=== PATIENT | male | born 1965 | race Caucasian/White ===

== ENCOUNTER → 2020-11-19 | Outpatient (CLI) | payer BC ==
[2020-11-19 15:19] LABS: Basophils # (A) 0.1 k/uL (0-0.2); Basophils % (A) 1 %; Eosinophils # (A) 0.1 k/uL (0-0.7); Eosinophils % (A) 1 %; HGB 14.2 gm/dL (13.0-17.5); Lymphocytes # (A) 1.1 k/uL (1.0-4.8); Lymphocytes % (A) 11 %; MCH 30.6 pg (25.0-35.0); MCHC 32.2 g/dL (31.0-37.0); MCV 94.7 fL (80.0-100.0); Mean Platelet Volume 6.3; Monocytes # (A) 0.4 k/uL (0-1.0); Monocytes % (A) 4 %; Neutrophils # (A) 8.1 k/uL (1.3-7.7); Neutrophils % (A) 82 %; Platelet Count 551 k/uL (150-450); RBC 4.64 m/uL (4.30-5.90); RDW 13.6 % (11.5-15.5); WBC 9.8 k/uL (3.8-10.6)
[2020-11-19 15:20] LABS: Potassium 5.3 mmol/L (3.5-5.1)
[2020-11-19 15:21] LABS: ALT 58 U/L (4-49); AST 31 U/L (17-59); African American GFR (CKD) >90 (>60 ml/min/1.73 sqM); Albumin 3.7 g/dL (3.5-5.0); Albumin/Globulin Ratio 1.3; Alkaline Phosphatase 75 U/L (38-126); Anion Gap 9 mmol/L; Blood Urea Nitrogen 22 mg/dL (9-20); Calcium 9.4 mg/dL (8.4-10.2); Carbon Dioxide 24 mmol/L (22-30); Chloride 107 mmol/L (98-107); Globulin 2.9 g/dL; Glucose 90 mg/dL (74-99); Non-African American GFR(CKD) 81 (>60 ml/min/1.73 sqM); Sodium 140 mmol/L (137-145); Total Bilirubin 0.3 mg/dL (0.2-1.3); Total Protein 6.6 g/dL (6.3-8.2)
[2020-11-19 15:38] LABS: T4, Free (Free Thyroxine) 1.24 ng/dL (0.78-2.19)
== END | disposition home or self-care (01) ==
LOC: LABWHC1 14:11
PROVIDERS: ATTEND Physician Assistant
DX: U07.1 COVID-19 (principal)
CPT/HCPCS: 80053; 83880; 84439; 84443; 85025; 85379

== ENCOUNTER 2020-11-22 10:41 | Inpatient (IN) | payer BC ==
[2020-11-22] MEDS ORDERED: HEPARIN SODIUM 1,000 UN/ML (10ML VL) IV PRN (11:15)
[2020-11-22] MEDS ORDERED: HEPARIN SODIUM 1,000 UN/ML (10ML VL) IV ONE (11:15)
--- NOTE | 2020-11-22 11:41 | ED ---
SOB HPI - General Chief Complaint: Shortness of Breath Stated Complaint: rt lower lobe PE Time Seen by Provider: 11/22/20 10:57 Source: patient, RN notes reviewed Mode of arrival: ambulatory Limitations: no limitations - History of Present Illness Initial Comments: 55-year-old male presents emergency Department from outpatient CT with chief complaint of and wasn't. Patient states she was diagnosed with cold visit on November 05. Patient states that he wasn't doing well he was seen placed on hydroxychloroquine, antibiotics inhaler. Patient states that he was doing that not getting any better did follow-up had an x-ray and blood work. Patient had a n elevated d-dimer which he had a CAT scan today showing right-sided pulmonary embolus. Patient denies any significant calf pain, pleuritic chest pain, abdominal pain. No history of DVT or PE. - Related Data Home Medications Medication Instructions Recorded Confirmed Albuterol Inhaler [Ventolin Hfa 2 puff INHALATION RT-Q4H PRN 11/22/20 11/22/20 Inhaler] Doxycycline Hyclate [Vibramycin] 100 mg PO BID 11/22/20 11/22/20 Allergies Allergy/AdvReac Type Severity Reaction Status Date / Time No Known Allergies Allergy Verified 11/22/20 12:14 Review of Systems ROS Statement: Those systems with pertinent positive or pertinent negative responses have been documented in the HPI. ROS Other: All systems not noted in ROS Statement are negative. Past Medical History Past Medical History: No Reported History History of Any Multi-Drug Resistant Organisms: None Reported Past Surgical History: No Surgical Hx Reported Additional Past Surgical History / Comment(s): bicep tendon repair L arm Past Psychological History: No Psychological Hx Reported Smoking Status: Former smoker Past Alcohol Use History: Daily Past Drug Use History: None Reported General Exam Limitations: no limitations General appearance: alert, in no apparent distress Head exam: Present: atraumatic, normocephalic, normal inspection ENT exam: Present: normal exam, normal oropharynx, mucous membranes moist Neck exam: Present: normal inspection, full ROM. Absent: tenderness, lymphadenopathy Respiratory exam: Present: normal lung sounds bilaterally. Absent: respiratory distress, wheezes, rales, rhonchi, stridor, chest wall tenderness Cardiovascular Exam: Present: regular rate, normal rhythm, normal heart sounds. Absent: systolic murmur, diastolic murmur, rubs, gallop, clicks GI/Abdominal exam: Present: soft, normal bowel sounds. Absent: distended, tenderness, guarding, rebound, rigid Extremities exam: Absent: calf tenderness Neurological exam: Present: alert, oriented X3 Skin exam: Present: warm, dry, intact, normal color. Absent: rash Course Vital Signs 11/22/20 11/22/20 11/22/20 10:43 11:16 12:25 Temperature 98.2 F Pulse Rate 77 73 66 Respiratory 18 20 18 Rate Blood Pressure 105/73 120/76 O2 Sat by Pulse 96 95 95 Oximetry Medical Decision Making - Medical Decision Making Patient vital are stable. Case discussed with Dr. Rhoades Patient will be admitted to hospital on IV heparin. - Lab Data Result diagrams: 11/22/20 11:23 11/22/20 11:23 Lab Results 11/22/20 11/22/20 11/22/20 Range/Units 11:23 11:23 11:23 WBC 6.8 (3.8-10.6) k/uL RBC 4.67 (4.30-5.90) m/uL Hgb 14.1 (13.0-17.5) gm/dL Hct 43.3 (39.0-53.0) % MCV 92.8 (80.0-100.0) fL MCH 30.3 (25.0-35.0) pg MCHC 32.6 (31.0-37.0) g/dL RDW 13.3 (11.5-15.5) % Plt Count 449 (150-450) k/uL MPV 6.3 Neutrophils % 78 % Lymphocytes % 13 % Monocytes % 5 % Eosinophils % 1 % Basophils % 1 % Neutrophils # 5.3 (1.3-7.7) k/uL Lymphocytes # 0.9 L (1.0-4.8) k/uL Monocytes # 0.4 (0-1.0) k/uL Eosinophils # 0.1 (0-0.7) k/uL Basophils # 0.0 (0-0.2) k/uL PT 9.7 (9.0-12.0) sec INR 0.9 (<1.2) APTT 23.1 (22.0-30.0) sec Sodium 139 (137-145) mmol/L Potassium 5.4 H (3.5-5.1) mmol/L Chloride 106 (98-107) mmol/L Carbon Dioxide 27 (22-30) mmol/L Anion Gap 6 mmol/L BUN 19 (9-20) mg/dL Creatinine 0.99 (0.66-1.25) mg/dL Est GFR (CKD-EPI)AfAm >90 (>60 ml/min/1.73 sqM) Est GFR (CKD-EPI)NonAf 86 (>60 ml/min/1.73 sqM) Glucose 96 (74-99) mg/dL Calcium 9.4 (8.4-10.2) mg/dL Total Bilirubin 0.6 (0.2-1.3) mg/dL AST 31 (17-59) U/L ALT 48 (4-49) U/L Alkaline Phosphatase 53 (38-126) U/L Troponin I (0.000-0.034) ng/mL NT-Pro-B Natriuret Pep pg/mL Total Protein 6.6 (6.3-8.2) g/dL Albumin 3.6 (3.5-5.0) g/dL 11/22/20 11/22/20 Range/Units 11:23 11:23 WBC (3.8-10.6) k/uL RBC (4.30-5.90) m/uL Hgb (13.0-17.5) gm/dL Hct (39.0-53.0) % MCV (80.0-100.0) fL MCH (25.0-35.0) pg MCHC (31.0-37.0) g/dL RDW (11.5-15.5) % Plt Count (150-450) k/uL MPV Neutrophils % % Lymphocytes % % Monocytes % % Eosinophils % % Basophils % % Neutrophils # (1.3-7.7) k/uL Lymphocytes # (1.0-4.8) k/uL Monocytes # (0-1.0) k/uL Eosinophils # (0-0.7) k/uL Basophils # (0-0.2) k/uL PT (9.0-12.0) sec INR (<1.2) APTT (22.0-30.0) sec Sodium (137-145) mmol/L Potassium (3.5-5.1) mmol/L Chloride (98-107) mmol/L Carbon Dioxide (22-30) mmol/L Anion Gap mmol/L BUN (9-20) mg/dL Creatinine (0.66-1.25) mg/dL Est GFR (CKD-EPI)AfAm (>60 ml/min/1.73 sqM) Est GFR (CKD-EPI)NonAf (>60 ml/min/1.73 sqM) Glucose (74-99) mg/dL Calcium (8.4-10.2) mg/dL Total Bilirubin (0.2-1.3) mg/dL AST (17-59) U/L ALT (4-49) U/L Alkaline Phosphatase (38-126) U/L Troponin I <0.012 (0.000-0.034) ng/mL NT-Pro-B Natriuret Pep 22 pg/mL Total Protein (6.3-8.2) g/dL Albumin (3.5-5.0) g/dL Critical Care Time Critical Care Time: Yes Total Critical Care Time: 35 Critical Care Time: 35 minutes of critical care time were used initially about the patient and review past medical history prior labs and CT labs were ordered started on IV heparin patient's case discussed with admitting physician. Disposition Clinical Impression: Pulmonary embolism, COVID-19 Disposition: ADMITTED IP TO THIS HOSP Condition: Fair Referrals: Nilesh Britt MD [Primary Care Provider] - 1-2 days
[2020-11-22 11:49] LABS: Basophils % (A) 1 %; Eosinophils # (A) 0.1 k/uL (0-0.7); Eosinophils % (A) 1 %; HCT 43.3 % (39.0-53.0); HGB 14.1 gm/dL (13.0-17.5); Lymphocytes # (A) 0.9 k/uL (1.0-4.8); Lymphocytes % (A) 13 %; MCH 30.3 pg (25.0-35.0); MCHC 32.6 g/dL (31.0-37.0); MCV 92.8 fL (80.0-100.0); Mean Platelet Volume 6.3; Monocytes # (A) 0.4 k/uL (0-1.0); Monocytes % (A) 5 %; Neutrophils # (A) 5.3 k/uL (1.3-7.7); Neutrophils % (A) 78 %; Platelet Count 449 k/uL (150-450); RBC 4.67 m/uL (4.30-5.90); RDW 13.3 % (11.5-15.5); WBC 6.8 k/uL (3.8-10.6)
[2020-11-22] MEDS: HEPARIN SOD,PORK IN 0.45% NACL 25,000 UNIT in 0.45% NACL 1 250ML.BAG IV SCH (11:50)
[2020-11-22 12:01] LABS: ALT 48 U/L (4-49); AST 31 U/L (17-59); African American GFR (CKD) >90 (>60 ml/min/1.73 sqM); Albumin 3.6 g/dL (3.5-5.0); Alkaline Phosphatase 53 U/L (38-126); Anion Gap 6 mmol/L; Blood Urea Nitrogen 19 mg/dL (9-20); Calcium 9.4 mg/dL (8.4-10.2); Carbon Dioxide 27 mmol/L (22-30); Chloride 106 mmol/L (98-107); Glucose 96 mg/dL (74-99); Non-African American GFR(CKD) 86 (>60 ml/min/1.73 sqM); Potassium 5.4 mmol/L (3.5-5.1); Sodium 139 mmol/L (137-145); Total Bilirubin 0.6 mg/dL (0.2-1.3); Total Protein 6.6 g/dL (6.3-8.2)
[2020-11-22 12:36] LABS: INR 0.9 (<1.2); Partial Thromboplastin Time 23.1 sec (22.0-30.0); Prothrombin Time 9.7 sec (9.0-12.0)
[2020-11-22] MEDS ORDERED: ACETAMINOPHEN TAB 325 MG TAB PO PRN (12:58)
[2020-11-22] MEDS ORDERED: ALBUTEROL HFA INHALER INHALATION PRN (12:58)
[2020-11-22] MEDS ORDERED: NALOXONE 0.4 MG/ML 1 ML VIAL IV PRN (13:31)
[2020-11-22] MEDS ORDERED: MELATONIN 3 MG TABLET PO PRN (13:37)
[2020-11-22] MEDS ORDERED: HYDROcodone/APAP 5-325MG 1 EACH TAB PO PRN (13:37)
[2020-11-22] MEDS ORDERED: ONDANSETRON 4 MG/2 ML VIAL IVP PRN (13:37)
--- NOTE | 2020-11-22 14:46 | P.HPIM ---
History of Present Illness H&P Date: 11/22/20 History of presenting illness: Patient is a 55-year-old male with recent history of Covid 19 virus infection diagnosed on 11/10/20 at [facility] in [place]. He reports his symptoms of fever, chills, cough, shortness of breath, and congestion began approximately 1 week prior on 11/03/20. He presented to the hospital today secondary to abnormal computed tomography scan revealing right-sided pulmonary emboli after having abnormal blood work at PCPs office which was significant for an elevated d-dimer. CTA completed this morning revealed right lower lobe pulmonary embolism within the second and third branches of right lower lobe along with scattered groundglass opacities correlating with Covid 19 pneumonia. Patient was given heparin bolus followed by infusion secondary to acute PEs and admitted under our services for continued medical management. EKG was completed showing normal sinus rhythm at 71 bpm with no noted T-wave or ST abnormalities showing no acute ischemia. CBC unremarkable, coags unremarkable. BMP revealed mild hyperkalemia with potassium of 5.4 otherwise normal findings. Troponin less than 0.012. Patient reports persistent low-grade fever 99-100F accompanied by Review of systems: Pertinent positives and negatives as discussed in HPI, a complete review of systems was performed and all other systems are negative. Physical exam: General: non toxic, no distress, appears at stated age Derm: warm, dry Head: atraumatic, normocephalic, symmetric Eyes: EOMI, no lid lag, anicteric sclera Mouth: no lip lesion, mucus membranes moist Cardiovascular: S1S2 reg, no murmur, positive posterior tibial pulse bilateral, Lungs: CTA bilateral, no rhonchi, no rales , no accessory muscle use Abdominal: soft, nontender to palpation, no guarding, no appreciable organomegaly Ext: no gross muscle atrophy, no edema, no contractures Neuro: CN II-XI grossly intact, no focal neuro deficits Psych: Alert, oriented, appropriate affect Plan of care: Acute PE within the second and third branches of right lower lobe -CTA revealed right lower lobe pulmonary embolism within the second and third branches of right lower lobe along with scattered groundglass opacities correlating with Covid 19 pneumonia. -Continuation of heparin infusion, pharmacy to dose. -Telemetry monitoring -Echocardiogram. Covid 19 Pneumonia -Oxygenation to be administered and titrated as needed to maintain SPO2 equal to or greater than 92%. Patient currently on room air 96%. -Telemetry monitoring. -Ventolin inhaler as needed for SOB and/or wheezing -Incentive Spirometry 10-15 times hourly while awake -We will obtain inflammatory markers. -Consult to pulmonology -Vitamin C, vitamin D, zinc, and melatonin. Hyperkalemia -Potassium 5.4 -EKG showing normal sinus rhythm at 71 bpm with no T-wave or ST abnormalities showing no signs of acute ischemia. -Telemetry monitoring -Continue close monitoring with repeat a.m. labs. The patient is admitted with an anticipated greater than 2 midnight stay for evaluation of pulmonary embolism in Covid 19 pneumonia. CODE STATUS: Full code DVT prophylaxis: Heparin Discussed with: Patient, RN, and patient's Sarah Anticipated discharge date: Clinical course to determine Anticipated discharge place: Home A total of 45 minutes was spent on the care of this complex patient more than 50% of the time was spent in counseling and care coordination. Past Medical History Past Medical History: No Reported History History of Any Multi-Drug Resistant Organisms: None Reported Past Surgical History: No Surgical Hx Reported Additional Past Surgical History / Comment(s): bicep tendon repair L arm Past Psychological History: No Psychological Hx Reported Smoking Status: Former smoker Past Alcohol Use History: Daily Past Drug Use History: None Reported Medications and Allergies Home Medications Medication Instructions Recorded Confirmed Type Albuterol Inhaler [Ventolin Hfa 2 puff INHALATION RT-Q4H PRN 11/22/20 11/22/20 History Inhaler] Doxycycline Hyclate [Vibramycin] 100 mg PO BID 11/22/20 11/22/20 History Allergies Allergy/AdvReac Type Severity Reaction Status Date / Time No Known Allergies Allergy Verified 11/22/20 12:14 Physical Exam Vitals: Vital Signs Temp Pulse Resp BP Pulse Ox 11/22/20 12:25 66 18 120/76 95 11/22/20 11:16 73 20 95 11/22/20 10:43 98.2 F 77 18 105/73 96 Intake and Output 11/21/20 11/22/20 11/22/20 22:59 06:59 14:59 Other: Weight 77.111 kg Results CBC & Chem 7: 11/22/20 11:23 11/22/20 11:23 Labs: Abnormal Lab Results - Last 24 Hours (Table) 11/22/20 11/22/20 Range/Units 11:23 11:23 Lymphocytes # 0.9 L (1.0-4.8) k/uL Potassium 5.4 H (3.5-5.1) mmol/L
[2020-11-22 17:11] LABS: C Reactive Protein 2.9 mg/dL (<1.0)
[2020-11-22] MEDS ORDERED: MELATONIN 5 MG TABLET PO SCH (21:00)
[2020-11-22 23:23] VITALS: RESP 18
[2020-11-23] MEDS: HEPARIN SOD,PORK IN 0.45% NACL 25,000 UNIT in 0.45% NACL 1 250ML.BAG IV SCH (01:59)
[2020-11-23] MEDS ORDERED: ZINC SULFATE 220 MG CAP PO SCH (09:00)
[2020-11-23] MEDS ORDERED: CHOLECALCIFEROL 25 MCG (1000 IU) TABLET PO SCH ×2 (09:00)
[2020-11-23] MEDS ORDERED: ASCORBIC ACID 500 MG TAB PO SCH (09:00)
[2020-11-23 10:21] LABS: Basophils % (A) 1 %; Eosinophils # (A) 0.1 k/uL (0-0.7); Eosinophils % (A) 1 %; HCT 41.5 % (39.0-53.0); HGB 13.9 gm/dL (13.0-17.5); Lymphocytes # (A) 1.3 k/uL (1.0-4.8); Lymphocytes % (A) 21 %; MCH 31.4 pg (25.0-35.0); MCHC 33.5 g/dL (31.0-37.0); MCV 93.8 fL (80.0-100.0); Mean Platelet Volume 6.6; Monocytes # (A) 0.4 k/uL (0-1.0); Monocytes % (A) 6 %; Neutrophils # (A) 4.4 k/uL (1.3-7.7); Neutrophils % (A) 69 %; Platelet Count 412 k/uL (150-450); RBC 4.42 m/uL (4.30-5.90); RDW 13.1 % (11.5-15.5); WBC 6.4 k/uL (3.8-10.6)
[2020-11-23 10:50] LABS: African American GFR (CKD) >90 (>60 ml/min/1.73 sqM); Anion Gap 6 mmol/L; Blood Urea Nitrogen 19 mg/dL (9-20); Calcium 9.2 mg/dL (8.4-10.2); Carbon Dioxide 28 mmol/L (22-30); Chloride 106 mmol/L (98-107); Glucose 98 mg/dL (74-99); Non-African American GFR(CKD) 86 (>60 ml/min/1.73 sqM); Potassium 4.9 mmol/L (3.5-5.1); Sodium 140 mmol/L (137-145)
[2020-11-23] MEDS ORDERED: RIVAROXABAN 15 MG TAB PO SCH (11:00)
[2020-11-23 11:18] VITALS: TEMP 98.3
[2020-11-23 13:17] VITALS: BP 121/85; PULSE 75
--- NOTE | 2020-11-23 14:23 | P.DS ---
Providers Date of admission: 11/22/20 13:02 Expected date of discharge: 11/23/20 Attending physician: Wesley Rhoades Consults: 11/22/20 14:11 Consult Physician Routine Consulting Provider: Soheila Ramírez Consult Reason/Comments: Covid Pneumonia with PEs in second and third branch of right lower lobe Do you want consulting provider notified?: Yes Primary care physician: Nilesh Britt Hospital Course: Patient is a 55-year-old male with recent history of Covid 19 virus infection diagnosed on 11/10/20 at [facility]. He presented to the hospital secondary to abnormal d-dimer. CTA completed this morning revealed right lower lobe pulmonary embolism within the second and third branches of right lower lobe along with scattered groundglass opacities correlating with Covid 19 pneumonia. Patient was started on IV heparin drip and admitted to the hospital for further management. He remained hemodynamically stable. An echocardiogram was ordered but unfortunately there is significant delay in cardiology reading a closed and I also suspect any significant right ventricular strain and clinically. Patient will follow-up with his PCP regarding echo report. He was transitioned to Rivaroxaban for anticoagulation. He was advised to continue anticoagulation for 6 months. He had no evidence of hypoxia at rest or with ambulation. He'll be discharged home in a stable condition. He will follow-up with his PCP next week. Physical exam, General: The patient is awake and alert, in no distress Eye: there is normal conjunctiva bilaterally. Neck: The neck is supple, there is no JVD. Cardiovascular: Normal S1-S2, no S3-S4, no murmurs. Respiratory: Lungs clear to auscultation bilaterally Gastrointestinal: Abdomen is soft, nontender Musculoskeletal: There is no pedal edema. Neurological:. Speech is normal. Skin: Skin is warm and dry Patient Condition at Discharge: Fair Plan - Discharge Summary Discharge Rx Participant: No New Discharge Prescriptions: New Rivaroxaban [Xarelto Starter Pack] 0 mg PO DIRECTED 30 Days #1 pack Zinc Sulfate [Orazinc] 220 mg PO DAILY cap Ascorbic Acid [Vitamin C] 1,000 mg PO DAILY tab Cholecalciferol [Vitamin D3 (25 Mcg = 1000 Iu)] 100 mcg PO DAILY tablet Continue Albuterol Inhaler [Ventolin Hfa Inhaler] 2 puff INHALATION RT-Q4H PRN PRN Reason: Shortness Of Breath Discontinued Doxycycline Hyclate [Vibramycin] 100 mg PO BID Discharge Medication List Albuterol Inhaler [Ventolin Hfa Inhaler] 2 puff INHALATION RT-Q4H PRN 11/22/20 [History] Ascorbic Acid [Vitamin C] 1,000 mg PO DAILY tab 11/23/20 [Rx] Cholecalciferol [Vitamin D3 (25 Mcg = 1000 Iu)] 100 mcg PO DAILY tablet 11/23/20 [Rx] Rivaroxaban [Xarelto Starter Pack] 0 mg PO DIRECTED 30 Days #1 pack 11/23/20 [Rx] Zinc Sulfate [Orazinc] 220 mg PO DAILY cap 11/23/20 [Rx] Follow up Appointment(s)/Referral(s): Chapito Diaz MD [STAFF PHYSICIAN] - 2 Weeks Nilesh Britt MD [Primary Care Provider] - 1-2 days Discharge Disposition: HOME SELF-CARE
--- NOTE | 2020-11-23 15:48 | P.CNPUL ---
History of Present Illness Consult date: 11/23/20 Requesting physician: Wesley Rhoades Reason for consult: pulmonary embolism Chief complaint: Shortness of breath History of present illness: This is a 55-year-old white male diagnosed with COVID-19 infection echo on 11/10/20, his diagnosis was made at [facility] in [facility]. Symptoms started initially with mostly fever chills, cough, and generalized body aches and pains. Associated with congestion, his symptoms actually started on 11/03/2020. And his diagnosis with positive PCR was on 11/10. Patient was treated with multiple medications on outpatient basis including Decadron, hydroxychloroquine, and I believe he received some antibiotics. In the last few days, his symptoms of shortness of breath have progressed, he was seen in our ER, and he had a elevated d-dimer however the patient was discharged home for the results of the d-dimer came back. And he was later notified that his d-dimer is elevated, and advised to come back for a CT angiogram of the chest. Patient came back yesterday and he underwent CT angiogram of the chest. It clearly showed evidence of right lower lobe pulmonary embolism and inflammatory changes in both lungs peripherally, consistent with acute or subacute COVID-19 pneumonia. Patient was admitted, I saw him on consultation this afternoon, recommended transitioning the patient to Xarelto 15 mg twice a day for 21 days and then 20 mg daily for at least 3 months. Patient was on room air, he was not in any distress, and I felt that the patient could be discharged home with plans to have outpatient follow-up. Patient is to come back to the ER if his condition gets any worse. CBC today was normal. PTT was therapeutic at 42.4 electrodes are normal renal profile was normal. CT angiogram of the chest was reviewed Review of Systems Constitutional: Negative HEENT: Negative Pulmonary: As noted in HPI. Cardiac: Negative GI: Negative Genitourinary: Negative Musculoskeletal: Negative Neurologic: Negative Endocrine: Negative Psychiatric: Negative Hematologic: No previous history of deep vein thromboses or pulmonary embolism or hypercoagulable state. Skin: Negative Past Medical History Past Medical History: No Reported History History of Any Multi-Drug Resistant Organisms: None Reported Past Surgical History: No Surgical Hx Reported Additional Past Surgical History / Comment(s): bicep tendon repair L arm Past Anesthesia/Blood Transfusion Reactions: No Reported Reaction Past Psychological History: No Psychological Hx Reported Smoking Status: Former smoker Past Alcohol Use History: Daily Past Drug Use History: None Reported Medications and Allergies Home Medications Medication Instructions Recorded Confirmed Type Albuterol Inhaler [Ventolin Hfa 2 puff INHALATION RT-Q4H PRN 11/22/20 11/22/20 History Inhaler] Ascorbic Acid [Vitamin C] 1,000 mg PO DAILY tab 11/23/20 Rx Cholecalciferol [Vitamin D3 (25 100 mcg PO DAILY tablet 11/23/20 Rx Mcg = 1000 Iu)] Rivaroxaban [Xarelto Starter Pack] 0 mg PO DIRECTED 30 Days #1 pack 11/23/20 Rx Zinc Sulfate [Orazinc] 220 mg PO DAILY cap 11/23/20 Rx Allergies Allergy/AdvReac Type Severity Reaction Status Date / Time No Known Allergies Allergy Verified 11/22/20 12:14 Physical Exam Vitals: Vital Signs Temp Pulse Pulse Resp BP BP Pulse Ox 11/23/20 12:00 75 121/85 95 11/23/20 08:00 98.3 F 69 121/75 97 11/23/20 04:00 98.2 F 73 18 111/71 96 11/23/20 02:00 64 18 11/23/20 00:00 98.1 F 64 18 123/73 96 11/22/20 21:25 98.5 F 65 18 110/68 97 11/22/20 21:00 98.6 F 71 20 108/72 99 11/22/20 18:48 84 18 126/88 96 11/22/20 18:43 99.2 F 11/22/20 17:12 75 95 11/22/20 16:30 73 20 110/82 96 Intake and Output 11/23/20 11/23/20 11/23/20 06:59 14:59 22:59 Intake Total 160.622 480 Balance 160.622 480 Intake: Intake, IV Titration 160.622 Amount Heparin Sod,Pork in 0.45% 160.622 NaCl 25,000 unit In 0.45 % NaCl 1 250ml.bag @ 18 UNITS/KG/HR 13.88 mls/hr IV .Q18H1M [facility] Rx#: [id number] Oral 480 Other: # Voids 1 # Bowel Movements 0 Weight 112 kg Physical Exam: Revealed 55-year-old white male pleasant in no distress on room air. Head: Atraumatic, normocephalic. HEENT:[Neck is supple.] [No neck masses.] [No thyromegaly.] [No JVD.] Chest: [Clear throughout, no crackles, no rhonchi, no wheezes.] Cardiac Exam: [Normal S1 and S2, no S3 gallop, no murmur.] Abdomen: [Soft, nontender, no megaly, no rebound, no guarding, normal bowel sounds.] Extremities: [No clubbing, no edema, no cyanosis.] Neurological Exam: [No focal neurologic deficit.] Alert and oriented 3. Psychiatric: Normal mood affect and normal mental status examination. Skin: No rashes. Musculoskeletal: No deformities and no limitation in range of motion. Results - Laboratory Findings CBC and BMP: 11/23/20 10:06 11/23/20 10:06 PT/INR, D-dimer PT 9.7 sec (9.0-12.0) 11/22/20 11:23 INR 0.9 (<1.2) 11/22/20 11:23 Abnormal lab findings: Abnormal Labs 11/22/20 11/22/20 11/22/20 11:23 11:23 16:26 Lymphocytes # 0.9 L ESR 68 H APTT Potassium 5.4 H C-Reactive Protein 11/22/20 11/23/20 11/23/20 16:26 01:34 10:06 Lymphocytes # ESR APTT 35.0 H 42.4 H Potassium C-Reactive Protein 2.9 H - Diagnostic Findings CT scan - chest: image reviewed (As noted in HPI.) Assessment and Plan Assessment: Impression: Acute pulmonary embolism involving right lower lobe, most likely provoked by COVID-19 infection. Acute COVID-19 pneumonia History of mild asthma Recommendation: Agree with the present treatment plan Agree with discharge planning on Xarelto for at least 3 months. Continue vitamin C zinc and vitamin D on outpatient basis. Resume home meds including albuterol. Cleared for discharge today, and the patient could come and see me in follow-up in one week. Time with Patient: Greater than 30
[2020-11-24 00:45] LABS: Ferritin 536.2 ng/mL (22.0-322.0)
--- NOTE | 2020-11-24 11:02 | ECHOF ---
Referral Reason:Acute PE right second and third branches MEASUREMENTS -------- HEIGHT: 182.9 cm WEIGHT: 122.5 kg BP: 120/77 RVIDd: 3.6 cm (< 3.3) IVSd: 1.4 cm (0.6 - 1.1) LVIDd: 4.5 cm (3.9 - 5.3) LVPWd: 1.5 cm (0.6 - 1.1) IVSs: 2.0 cm LVIDs: 3.3 cm LVPWs: 2.1 cm LA Diam: 3.8 cm (2.7 - 3.8) LAESV Index (A-L): 23.61 ml/m Ao Diam: 4.3 cm (2.0 - 3.7) AV Cusp: 2.5 cm (1.5 - 2.6) MV EXCURSION: 16.659 mm (> 18.000) MV EF SLOPE: 62 mm/s (70 - 150) EPSS: 1.1 cm MV E Pedro: 0.58 m/s MV DecT: 403 ms MV A Pedro: 0.61 m/s MV E/A Ratio: 0.96 RAP: 5.00 mmHg RVSP: 42.29 mmHg FINDINGS -------- Sinus rhythm. This was a technically adequate study. The left ventricular size is normal. There is moderate concentric left ventricular hypertrophy. O verall left ventricular systolic function is normal with, an EF between 60 - 65 %. The right ventricle is mildly enlarged. Normal LA size by volume 22+/-6 ml/m2. The right atrium is normal in size. Interatrial and interventricular septum intact. The aortic valve is trileaflet and appears structurally normal. Trace to mild aortic regurgitation. The mitral valve is normal. Mild tricuspid regurgitation present. There is mild pulmonary hypertension. The right ventricular systolic pressure, as measured by Doppler, is 42.29mmHg. Trace/mild (physiologic) pulmonic regurgitation. The aortic root is dilated measuring 4.3cm. Normal inferior vena cava with normal inspiratory collapse consistent with estimated right atrial pre ssure of 5 mmHg. There is no pericardial effusion. CONCLUSIONS -------- 1. The left ventricular size is normal. 2. There is moderate concentric left ventricular hypertrophy. 3. Overall left ventricular systolic function is normal with, an EF between 60 - 65 %. 4. The right ventricle is mildly enlarged. 5. Trace to mild aortic regurgitation. 6. Mild tricuspid regurgitation present. 7. There is mild pulmonary hypertension. 8. The right ventricular systolic pressure, as measured by Doppler, is 42.29mmHg. 9. Trace/mild (physiologic) pulmonic regurgitation. 10. The aortic root is dilated measuring 4.3cm. 11. There is no pericardial effusion. MACHINE PECAN PICKER: Jordyn Pittman RDCS
== END 2020-11-23 16:00 | disposition home or self-care (01) | DRG 177 ==
LOC: EC 10:41 → 3SCARD 13:02
PROVIDERS: ADMIT Internal Medicine; ATTEND Internal Medicine
DX: U07.1 COVID-19 (principal); I26.99 Other pulmonary embolism without acute cor pulmonale; J12.82 Pneumonia due to coronavirus disease 2019; R68.83 Chills (without fever); R79.89 Other specified abnormal findings of blood chemistry; E87.5 Hyperkalemia; Z79.899 Other long term (current) drug therapy; Z87.891 Personal history of nicotine dependence; J45.909 Unspecified asthma, uncomplicated
CPT/HCPCS: 36415; 80048; 80053; 82728; 83615; 83880; 84484; 85025; 85610; 85652; 85730; 86140; 93005; 93306; 96374; 99285

== ENCOUNTER → 2020-11-22 | Outpatient (CLI) | payer BC ==
--- NOTE | 2020-11-22 10:26 | CT ---
EXAMINATION TYPE: CT angio chest DATE OF EXAM: 11/22/2020 COMPARISON: None HISTORY: H/O elevated d-dimer CT DLP: 586 mGycm CONTRAST: CT chest with contrast and 3D reconstruction with MIP imaging is performed with IV Contrast, patient injected with 100ml mL of Isovue 370. Contrast-enhanced CT of the chest was performed through the course of the pulmonary arteries with dian g and mediastinal window settings submitted. 3D reconstruction with MIP imaging was also performed. PULMONARY ARTERIES: There is filling defect noted within the second and third order branches right lo wer lobe pulmonary artery compatible with pulmonary embolism. No additional filling defects appreciat ed at this time. No evidence for saddle component. LUNGS: Scattered groundglass infiltrates are seen throughout both lung marin compatible with underly ing pneumonia. Correlate for Covid 19 pneumonia. MEDIASTINUM: Thoracic aorta is of normal caliber,however, evaluation is limited given timing of the contrast bolus. If there is concern for thoracic aortic pathology consider ISAAC. Correlate clinicall y . The heart is not enlarged. No evidence for mediastinal mass. No mediastinal lymph nodes greater than 1cm. HILAR STRUCTURES: No evidence for mass. No hilar lymph nodes greater than 1 cm. UPPER ABDOMEN: No significant abnormality is seen. IMPRESSION: 1. Right lower lobe pulmonary embolism as discussed above. 2. Findings suspicious for Covid 19 pneumonia. Correlate clinically.
== END | disposition home or self-care (01) ==
LOC: RADCTMAIN 09:50
PROVIDERS: ATTEND Family Medicine
DX: I26.99 Other pulmonary embolism without acute cor pulmonale (principal)
CPT/HCPCS: 71275; Q9967